=== PATIENT | female | born 1970 | race Caucasian/White ===

== ENCOUNTER 2023-11-01 13:24 | Emergency (ER) | payer OTHER ==
[~2023-11-01] VITALS: Ht 162.6 cm; Wt 68.0 kg
[2023-11-01 13:34] VITALS: BP 159/100; TEMP 97.9; O2SAT 98
[2023-11-01] MEDS ORDERED: AMOX-427 PO (13:46)
== END 2023-11-01 13:54 | disposition home or self-care (01) ==
LOC: ER 13:24
DX: S60.419A Abrasion of unspecified finger, initial encounter (principal); W53.21XA Bitten by squirrel, initial encounter; Y93.89 Activity, other specified; Y92.89 Other specified places as the place of occurrence of the external cause; Y99.8 Other external cause status